=== PATIENT | female | born 1990 | race Caucasian/White ===

== ENCOUNTER 2017-06-04 20:57 | Emergency (ER) | payer OTHER ==
[2017-06-04 21:13] VITALS: BP 117/73; PULSE 95; TEMP 98.6; BMI 29.2
--- NOTE | 2017-06-04 23:19 | PDOC ---
History of Present Illness - General History Source: Patient Exam Limitations: No Limitations - History of Present Illness Initial Comments: 06/05/17 00:02 The patient is a 27 year old female , with no significant past medical history, who presents to the emergency department complaining of a lesion to the left buttock for approximately 1 week. The patient reports the lesion is erythematous and has expanded during the past week. The patient reports associated pain, which she describes as sharp in nature. Patient has noted the lesion has a white center, which is new. She reports using an antibiotic cream and motrin, with mild relief of pain. Patient states she has never experienced anything like this before. She reports a headache and rash on right thigh with associated itchiness, but denies any fever or chills. She denies any nausea, vomiting, diarrhea, or constipation. Patient reports her boyfriend has a similar lesion on his leg, which he had used neosporin for with relief. She denies any recent travel. Allergies: None reported Past Surgical History: None reported Social History: Non smoker. No ETOH or drug use. <Ruma Kelly - Last Filed: 06/05/17 00:24> <Elijah Lynn - Last Filed: 06/05/17 00:41> - General Chief Complaint: Abscess Boil Stated Complaint: BITE Time Seen by Provider: 06/04/17 23:19 Past History <Ruma Kelly - Last Filed: 06/05/17 00:24> - Past Medical History Asthma: No Cancer: No Cardiac Disorders: No Diabetes: No HTN: No Seizures: No Thyroid Disease: No - Psycho/Social/Smoking Cessation Hx Suicidal Ideation: No Smoking History: Never smoked Have you smoked in the past 12 months: No Hx Alcohol Use: No Drug/Substance Use Hx: No Hx Substance Use Treatment: No <Elijah Lynn - Last Filed: 06/05/17 00:41> - Past Medical History Allergies/Adverse Reactions: Allergies Allergy/AdvReac Type Severity Reaction Status Date / Time No Known Allergies Allergy Verified 06/04/17 21:12 Home Medications: Ambulatory Orders Ferrous Sulfate 325 mg PO DAILY 11/25/16 Pnv95/Ferrous Fumarate/FA [ Vitamin Tablet] 1 each PO DAILY 11/25/16 Docusate Sodium [Colace -] 100 mg PO DAILY #30 capsule 11/26/16 Ferrous Sulfate [Feosol] 325 mg PO DAILY #30 tablet 11/26/16 Ibuprofen [Motrin -] 600 mg PO QID #28 tablet 11/26/16 Sulfamethoxazole/Trimethoprim [Bactrim Ds -] 1 tab PO BID #14 tablet 06/05/17 Review of Systems - Review of Systems Able to Perform ROS?: Yes Comments:: 06/05/17 00:02 CONSTITUTIONAL: No fever, no chills, no fatigue EYES: No visual changes ENT: No ear pain, no sore throat CARDIOVASCULAR: No chest pain, no palpitations RESPIRATORY: No cough, no SOB GI: No abdominal pain, no nausea, no vomiting, no constipation, no diarrhea GENITOURINARY: No dysuria, no frequency, no hematuria MUSKULOSKELETAL: Yes: +left buttock pain. No backpain, no joint pain, no myalgias SKIN: Yes: +right thigh rash, +right thigh itchiness, +left buttock lesion, + left buttock erythema NEURO: YES: +headache <Kelly,Giomilsy - Last Filed: 06/05/17 00:24> *Physical Exam - Vital Signs Last Vital Signs Temp Pulse Resp BP Pulse Ox 98.6 F 95 H 18 117/73 99 06/04/17 21:10 06/04/17 21:10 06/04/17 21:10 06/04/17 21:10 06/04/17 21:10 - Physical Exam Comments: 06/05/17 00:22 CONSTITUTIONAL: Well-appearing; well-nourished; in no apparent distress HEAD: Normocephalic; atraumatic EYES: PERRL; EOM intact ENMT: External appears normal; normal oropharynx NECK: Supple; non-tender; no cervical lymphadenopathy CARD: Normal S1, S2; no murmurs, rubs, or gallops RESP: Normal chest excursion with respiration; breath sounds clear and equal bilaterally; no wheezes, rhonchi, or rales ABD: Soft, non-distended; non-tender; no palpable organomegaly, no palpable hernias EXT: Normal ROM in all four extremities; non-tender to palpation; distal pulses intact SKIN: 2.5 cm area of erythema and induration with 0.5 cm fluctuance on left buttock. Otherwise warm and dry. NEURO: No focal neurological deficiencies. <Ruma Kelly - Last Filed: 06/05/17 00:24> - Vital Signs Last Vital Signs Temp Pulse Resp BP Pulse Ox 98.6 F 95 H 18 117/73 99 06/04/17 21:10 06/04/17 21:10 06/04/17 21:10 06/04/17 21:10 06/04/17 21:10 <Elijah Lynn - Last Filed: 06/05/17 00:41> Procedures - Incision and Drainage I&D Site: Left: Buttock Betadine cleansed: Yes Anesthesia: 1% Lidocaine w/ Epi Volume(ml): 2 Blade Size: 10 Attempts: 1 Plain Packing: No Dressing: Yes Progress: 06/05/17 00:39 Patient tolerated procedure well. <Elijah Lynn - Last Filed: 06/05/17 00:41> Medical Decision Making - Medical Decision Making 06/05/17 00:38 Patient is well-appearing 27-year-old female who presents with signs and symptoms of small cutaneous abscess to the left buttock. Patient is afebrile and nontoxic appearing. We'll perform incision and drainage, will obtain wound culture, likely discharge with by mouth Bactrim. <Elijah Lynn - Last Filed: 06/05/17 00:41> *DC/Admit/Observation/Transfer - Attestations Scribe Attestion: 06/05/17 00:03 Documentation prepared by Ruma Kelly, acting as medical office assistant instructor for Elijah Lynn MD. <Ruma Kelly - Last Filed: 06/05/17 00:24> - Attestations Physician Attestion: 06/05/17 00:38 The documentation was prepared by the scribe under my direct supervision. I have reviewed the documentation which correctly represents the findings, medical decision-making and critical action taken by me. <Elijah Lynn - Last Filed: 06/05/17 00:41> Diagnosis at time of Disposition: Abscess - Discharge Dispostion Disposition: HOME Condition at time of disposition: Stable - Prescriptions Prescriptions: Sulfamethoxazole/Trimethoprim [Bactrim Ds -] 1 tab PO BID #14 tablet - Patient Instructions Printed Discharge Instructions: DI for Incision and Drainage of a Skin Abscess Print Language: MACEDONIAN
[2017-06-05] MEDS ORDERED: LIDOCAINE 1%/EPI 1:100000 (50 ML MULTI DOSE VIAL) ONE (00:05)
[2017-06-05 00:24] LABS: URINE APPEARANCE CLEAR; URINE BILIRUBIN NEGATIVE (NEGATIVE); URINE BLOOD NEGATIVE (NEGATIVE); URINE COLOR LTYELLOW; URINE GLUCOSE (UA) NEGATIVE (NEGATIVE); URINE KETONE NEGATIVE (NEGATIVE); URINE LEUK ESTERASE NEGATIVE (NEGATIVE); URINE NITRITE NEGATIVE (NEGATIVE); URINE PROTEIN NEGATIVE (NEGATIVE); URINE UROBILINOGEN NEGATIVE E.U./dl (0.2-1.0)
[2017-06-05] MEDS ORDERED: SULFAMETHOXAZOLE/TRIMETHOPRIM 800MG/160MG D.S. TABLET PO ONE (00:25)
[2017-06-05] MEDS ORDERED: SULFAMETHOXAZOLE/TRIMETHOPRIM 800MG/160MG D.S. TABLET ONE (00:29)
== END 2017-06-05 00:57 | disposition home or self-care (01) ==
LOC: JER 20:57 → JERFT 20:57 → JER 06-05 00:57
PROC: 0H98XZZ Drainage of Buttock Skin, External Approach (ICD-10-PCS; principal; 2017-06-04)
DX: L02.31 Cutaneous abscess of buttock (principal); R21 Rash and other nonspecific skin eruption
CPT/HCPCS: 10060; 81003; 84703; 87070; 87186; 87205; 99281-25

== ENCOUNTER 2025-01-16 15:49 | Emergency (ER) | payer OTHER ==
[2025-01-16 16:43] VITALS: BP 139/90; PULSE 89; RESP 18; TEMP 98.6; BMI 24.2
[2025-01-16] MEDS ORDERED: IBUPROFEN 400 MG TABLET (FP) PO ONE (18:08)
[2025-01-16] MEDS ORDERED: METHOCARBAMOL 500 MG TABLET ONE (18:08)
[2025-01-16] MEDS ORDERED: ACETAMINOPHEN 500 MG TABLET (FP) ONE (18:09)
[2025-01-16] MEDS: ACETAMINOPHEN 500 MG TABLET (FP) PO ONE (18:13)
[2025-01-16] MEDS: IBUPROFEN 400 MG TABLET (FP) PO ONE (18:13)
[2025-01-16] MEDS: METHOCARBAMOL 500 MG TABLET PO ONE (18:13)
== END 2025-01-16 18:41 | disposition home or self-care (01) ==
LOC: JERFT 15:49 → JER 15:49 → JERFT 18:41
DX: M67.814 Other specified disorders of tendon, left shoulder (principal); M25.512 Pain in left shoulder
CPT/HCPCS: 99283-25